=== PATIENT | female | born 2000 | race American Indian/Alaskan Native ===

== ENCOUNTER 2021-08-20 16:12 | Emergency (ER) | payer SELFPAY ==
[2021-08-20 16:32] VITALS: BP 122/77
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
[2021-08-20] MEDS ORDERED: HYDROcodone/ACETAMINOPHEN 5-325 MG TAB PO ONE (17:20)
--- NOTE | 2021-08-20 17:22 | XRay Report ---
XR foot 3+V LT INDICATION / CLINICAL INFORMATION: left foot stepped on then fell, left ankle pain. COMPARISON: None available. FINDINGS: BONES/JOINT(S): No acute fracture or subluxation. No significant degenerative changes. SOFT TISSUES: No significant abnormality. ADDITIONAL FINDINGS: None. Signer Name: Evert Vázquez MD Signed: 08/20/2021 5:18 PM Workstation Name: [id number]
--- NOTE | 2021-08-20 17:24 | XRay Report ---
XR ankle 3+V LT INDICATION: left foot stepped on then fell, left ankle pain. COMPARISON: None available. FINDINGS: There is a minimally displaced fracture of the lateral malleolus. There is no additional fracture. An kle alignment appears normal. Signer Name: Evert Vázquez MD Signed: 08/20/2021 5:19 PM Workstation Name: [id number]
== END 2021-08-20 18:32 | disposition home or self-care (01) ==
LOC: ED 16:12
DX: S82.892A Other fracture of left lower leg, initial encounter for closed fracture (principal); W18.30XA Fall on same level, unspecified, initial encounter; Y93.89 Activity, other specified; Y92.89 Other specified places as the place of occurrence of the external cause; Y99.8 Other external cause status
CPT/HCPCS: 99283